=== PATIENT | female | born 1985 | race Hispanic/Latino ===

== ENCOUNTER → 2020-10-01 | Emergency (ER) | payer SELFPAY ==
[~2020-10-01] VITALS: Ht 165.1 cm; Wt 56.7 kg
[~2020-10-01] MED LIST: BELLADONNA ALK/PHENOBARBITAL 5 ML UDC PO ONE; LIDOCAINE VISC 2% SOLN 15 ML UDC PO ONE; MAGNESIUM/ALUMINUM/SIMETHICONE 30 ML UDC PO ONE; ONDANSETRON HCL 4 MG ORAL DISINTEGRATING TAB PO ONE
[2020-10-01 13:28] VITALS: BP 109/64
== END | disposition home or self-care (01) ==
LOC: ER 12:00
DX: K29.70 Gastritis, unspecified, without bleeding (principal); R10.13 Epigastric pain; R19.7 Diarrhea, unspecified; R11.0 Nausea
CPT/HCPCS: 99283; Q0162